=== PATIENT | female | born 1945 | race Caucasian/White ===

== ENCOUNTER 2020-07-24 06:29 | Day surgery (SDC) | payer MEDICARE ==
[2020-07-22 08:38] LABS: COVID AG,FIA SOURCE NASOPHARYNGEAL
[~2020-07-24 06:29] MED LIST: CYCLOPENTOLATE HCL 1% 2 ML OPHTHALMIC SOLUTION ONE; KETOROLAC TROMETHAMINE 0.5% 5 ML OPHTHALMIC SOLUTION ONE; MOXIFLOXACIN HCL 0.5% 3 ML OPHTHALMIC SOLUTION ONE; PHENYLEPHRINE HCL 2.5% 2 ML OPHTHALMIC SOLUTION ONE; RINGERS SOLUTION,LACTATED 0 ML IV ONE; TROPICAMIDE 1% 2 ML OPHTHALMIC SOLUTION ONE
[2020-07-24] MEDS ORDERED: MIDAZOLAM HCL 2 MG/2 ML VIAL IVP ONE (06:30)
[2020-07-24] MEDS ORDERED: FentaNYL CITRATE-PF 100 MCG/2 ML VIAL IVP ONE (06:30)
[2020-07-24] MEDS ORDERED: TETRACAINE HCL/PF 0.5% 4 ML OPHTHALMIC SOLUTION OU ONE (06:30)
[2020-07-24] MEDS ORDERED: BALANCED SALT 15 ML OPHTHALMIC IRRIG.SOLN OU ONE (06:30)
[2020-07-24] MEDS ORDERED: HYALURONATE SODIUM 12 MG/ML 0.8 ML SYRINGE IO ONE (06:30)
[2020-07-24] MEDS ORDERED: LIDOCAINE/PF 1% 2 ML VIAL IM ONE (06:30)
[2020-07-24] MEDS ORDERED: EPINEPHrine 1:1,000 [1 MG/ML] AMP IM ONE (06:30)
[2020-07-24] MEDS ORDERED: HYALURONATE SOD/CHONDROITIN SOD 0.5 ML VIAL IO ONE (06:30)
[2020-07-24] MEDS ORDERED: RINGERS SOLUTION,LACTATED 500 ML IV ONE (06:30)
[2020-07-24] MEDS ORDERED: POVIDONE-IODINE 10% 15 ML SOLUTION UD TP ONE (06:30)
[2020-07-24] MEDS ORDERED: 0.9% SODIUM CHLORIDE 10 ML SYRINGE IVP PRN (07:00)
[2020-07-24] MEDS: KETOROLAC TROMETHAMINE 0.5% 5 ML OPHTHALMIC SOLUTION OS SCH ×3 (07:03→07:14)
[2020-07-24] MEDS: TROPICAMIDE 1% 2 ML OPHTHALMIC SOLUTION OS SCH ×3 (07:03→07:14)
[2020-07-24] MEDS: CYCLOPENTOLATE HCL 1% 2 ML OPHTHALMIC SOLUTION OS SCH ×3 (07:03→07:14)
[2020-07-24] MEDS: MOXIFLOXACIN HCL 0.5% 3 ML OPHTHALMIC SOLUTION OS SCH ×3 (07:03→07:14)
[2020-07-24] MEDS: PHENYLEPHRINE HCL 2.5% 2 ML OPHTHALMIC SOLUTION OS SCH ×3 (07:03→07:14)
[2020-07-24 07:06] LABS: GLUCOMETER DEV NAME(LOC) SDS.; GLUCOSE,POINT OF CARE 174 MG/DL (70-110)
[2020-07-24] MEDS ORDERED: SODIUM CHLORIDE 0.9% 500 ML IV ONE (07:15)
[2020-07-24] MEDS ORDERED: AMLO-257 PO (08:40)
[2020-07-24] MEDS ORDERED: ASPI-1111 PO (08:40)
[2020-07-24] MEDS ORDERED: HYDR-2924 PO (08:40)
[2020-07-24] MEDS ORDERED: SITA100 PO (08:40)
[2020-07-24] MEDS ORDERED: LOSA50TA37 PO (08:40)
[2020-07-24] MEDS ORDERED: SEVE800T17 PO (08:40)
[2020-07-24] MEDS ORDERED: AcetaZOLAMIDE SODIUM 500 MG VIAL IVP ONE (09:56)
== END 2020-07-24 11:15 | disposition home or self-care (01) ==
LOC: SURGERY 06:29
PROVIDERS: ATTEND Ophthalmology Glaucoma Specialist
DX: E11.36 Type 2 diabetes mellitus with diabetic cataract (principal); H25.12 Age-related nuclear cataract, left eye; E11.22 Type 2 diabetes mellitus with diabetic chronic kidney disease; I12.0 Hypertensive chronic kidney disease with stage 5 chronic kidney disease or end stage renal disease; N18.6 End stage renal disease; I42.9 Cardiomyopathy, unspecified; Z79.899 Other long term (current) drug therapy; Z99.2 Dependence on renal dialysis; Z89.429 Acquired absence of other toe(s), unspecified side; Z90.49 Acquired absence of other specified parts of digestive tract; I25.2 Old myocardial infarction; Z79.82 Long term (current) use of aspirin
CPT/HCPCS: 66982; 82962; 87426; 93005; C9803; J0171; J1120; J2250; J3010; J3490 ×2; V2632; J7120

== ENCOUNTER 2021-01-19 10:03 | Day surgery (SDC) | payer MEDICARE ==
[2021-01-16 13:43] LABS: COVID AG,FIA SOURCE NASAL SWAB
[~2021-01-19] VITALS: Ht 154.9 cm; Wt 58.0 kg
[~2021-01-19 10:03] MED LIST changes: +ALEN70TA80 PO; +AMLO-257 PO; +ASPI-1444 PO; +BUPIVACAINE HCL/PF 0.75% 10 ML VIAL ONE; -CYCLOPENTOLATE HCL 1% 2 ML OPHTHALMIC SOLUTION ONE; +FOLI0.8T22 PO; +HYALURONIDASE, HUMAN RECOMB. 150 UNITS/ML ONE; +HYDR-4174 PO; -KETOROLAC TROMETHAMINE 0.5% 5 ML OPHTHALMIC SOLUTION ONE; +LIDOCAINE 2%/EPI 1:200,000/PF 20 ML VIAL ONE; +LOSA50TA37 PO; -MOXIFLOXACIN HCL 0.5% 3 ML OPHTHALMIC SOLUTION ONE; -PHENYLEPHRINE HCL 2.5% 2 ML OPHTHALMIC SOLUTION ONE; -RINGERS SOLUTION,LACTATED 0 ML IV ONE; +SEVE800T17 PO; +SITA100 PO; +SITA25 PO; -TROPICAMIDE 1% 2 ML OPHTHALMIC SOLUTION ONE
[2021-01-19] MEDS ORDERED: SODIUM CHLORIDE 0.9% 500 ML IV ONE ×2 (10:30→11:12)
[2021-01-19] MEDS ORDERED: SITA25 PO (11:19)
[2021-01-19] MEDS ORDERED: BIMA12.5OS OU (11:19)
[2021-01-19 11:21] LABS: GLUCOMETER DEV NAME(LOC) SDS.; GLUCOSE,POINT OF CARE 151 MG/DL (70-110)
[2021-01-19] MEDS ORDERED: MOXIFLOXACIN HCL 0.5% 3 ML OPHTHALMIC SOLUTION ONE (11:55)
[2021-01-19] MEDS ORDERED: PROPOFOL 1% 20 ML VIAL IVP ONE (12:00)
[2021-01-19] MEDS ORDERED: LIDOCAINE/PF 2% 5 ML VIAL IM ONE (12:00)
[2021-01-19] MEDS ORDERED: ACETAMINOPHEN 500 MG TABLET ONE (13:27)
[2021-01-19] MEDS ORDERED: LIDOCAINE/PF 1% 2 ML VIAL ONE (13:27)
[2021-01-19] MEDS ORDERED: ACETAMINOPHEN 500 MG TABLET PO ONE (13:30)
[2021-01-19] MEDS ORDERED: ACETAMINOPHEN 500 MG/ISO-OSM 50 ML IV ONE (14:00)
[2021-01-19] MEDS ORDERED: OxyCODONE HCL 10 MG IR TABLET PO ONE (14:45)
[2021-01-19] MEDS ORDERED: ONDANSETRON HCL 4 MG/2 ML VIAL ONE (14:54)
[2021-01-19] MEDS ORDERED: ONDANSETRON HCL 4 MG/2 ML VIAL IVP PRN (15:00)
[2021-01-19 15:17] LABS: GLUCOMETER DEV NAME(LOC) SDS.; GLUCOSE,POINT OF CARE 168 MG/DL (70-110)
== END 2021-01-19 15:31 | disposition home or self-care (01) ==
LOC: SURGERY 10:03
PROVIDERS: ATTEND Ophthalmology
DX: E11.39 Type 2 diabetes mellitus with other diabetic ophthalmic complication (principal); H40.10X3 Unspecified open-angle glaucoma, severe stage; H40.051 Ocular hypertension, right eye; H33.022 Retinal detachment with multiple breaks, left eye; E11.3413 Type 2 diabetes mellitus with severe nonproliferative diabetic retinopathy with macular edema, bilateral; I12.0 Hypertensive chronic kidney disease with stage 5 chronic kidney disease or end stage renal disease; E11.22 Type 2 diabetes mellitus with diabetic chronic kidney disease; N18.6 End stage renal disease; Z98.890 Other specified postprocedural states; Z79.899 Other long term (current) drug therapy; Z95.0 Presence of cardiac pacemaker
CPT/HCPCS: 66710; 82962; 87426; 93005; C9803; J0131; J2405; J2704; J3473; J3490 ×3; J7040